=== PATIENT | female | born 1960 | race Caucasian/White ===

== ENCOUNTER → 2016-08-05 | Outpatient (CLI) | payer OTHER | LOC: MC.RAD 11:00 | DX: Z12.31 Encounter for screening mammogram for malignant neoplasm of breast (principal) ==

== ENCOUNTER 2016-10-14 07:02 | Day surgery (SDC) | payer OTHER ==
[~2016-10-14] VITALS: Ht 160 cm; Wt 54.0 kg
[2016-10-14 07:41] VITALS: BP 101/54; PULSE 77; TEMP 97.8
[2016-10-14 08:55] VITALS: BP 87/61; PULSE 75
[2016-10-14 09:00] VITALS: BP 89/50; PULSE 62
[2016-10-14 09:15] VITALS: BP 101/58; PULSE 54
[2016-10-14 09:30] VITALS: BP 90/62; PULSE 53
== END 2016-10-14 09:45 | disposition home or self-care (01) ==
LOC: SDCO 07:02
DX: Z12.11 Encounter for screening for malignant neoplasm of colon (principal); Z80.0 Family history of malignant neoplasm of digestive organs
CPT/HCPCS: J2250; J2405; J3010; J7030

== ENCOUNTER → 2018-05-15 | Outpatient (CLI) | payer BC | LOC: MC.RAD 10:24 | DX: Z12.31 Encounter for screening mammogram for malignant neoplasm of breast (principal) ==

== ENCOUNTER → 2021-03-25 | Outpatient (CLI) | payer BC | LOC: MC.RAD 08:27 | DX: Z12.31 Encounter for screening mammogram for malignant neoplasm of breast (principal) ==